=== PATIENT | male | born 1955 | race Caucasian/White ===

== ENCOUNTER → 2021-05-01 | Outpatient (CLI) | payer OTHER | LOC: KOH-I 04-27 08:00 | DX: F17.210 Nicotine dependence, cigarettes, uncomplicated (principal); R22.9 Localized swelling, mass and lump, unspecified | CPT/HCPCS: 70486; 71271 ==

== ENCOUNTER → 2021-10-21 | Outpatient (CLI) | payer OTHER | LOC: KOH-I 09:32 | DX: S82.892A Other fracture of left lower leg, initial encounter for closed fracture (principal); R93.6 Abnormal findings on diagnostic imaging of limbs; M79.89 Other specified soft tissue disorders; X58.XXXA Exposure to other specified factors, initial encounter | CPT/HCPCS: 73700 ==